=== PATIENT | female | born 1970 | race Caucasian/White ===

== ENCOUNTER 2017-01-21 18:13 | Emergency (ER) | payer SELFPAY ==
[~2017-01-21] VITALS: Ht 167.6 cm; Wt 131.0 kg
[~2017-01-21 18:13] MED LIST: DICL50TA3 PO; METR500T10 PO
[2017-01-21 18:14] VITALS: BP 167/95; PULSE 94; RESP 18; TEMP 97.6; O2SAT 98
[2017-01-21] MEDS ORDERED: cefTRIAXone 250 MG VIAL IM ONE (18:45)
[2017-01-21] MEDS ORDERED: AZITHROMYCIN PWD FOR SUSP 1 GM PACKET PO ONE (18:45)
[2017-01-21] MEDS ORDERED: LIDOCAINE HCL 1% 50 ML VIAL IM ONE (18:45)
--- NOTE | 2017-01-21 18:45 | PD ---
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 She states that she is prone to getting this. She states she has had sex once in 2 months and that was on Thursday. She states she started on Thursday afternoon with cloudy urine, vaginal burning and yellow vaginal discharge. Patient denies a chance of . She has no medical problems and takes no medications. I explained to the patient that the individual that she is having sex with is probably giving her the Trichomonas that he needs to be treated as well. She denies any other complaints at this time. PFSH Past Medical History Anxiety: Yes Depression: Yes Psychiatric: No Immunizations Current: Yes ?: Not LMP: 2 WEEKS AGO : 3 Para: 3 Tubal Ligation: Yes Past Surgical History Section: Yes Cholecystectomy: Yes Social History Alcohol Use: No Tobacco Use: Yes (1 PK A DAY FOR 20+ YEARS) Substance Use: No (history of substance abuse. Sober 28 months) Allergies-Medications (Allergen,Severity, Reaction): Coded Allergies: Phenergan (Verified Allergy, Mild, CONFUSION, 01/21/17) Reported Meds & Prescriptions Reported Meds & Active Scripts Active Diclofenac Sodium DR (Diclofenac Sodium) 50 Mg Tabdr 50 Mg PO TID Metronidazole 500 Mg Tab 500 Mg PO BID 7 Days Review of Systems Except as stated in HPI: all other systems reviewed are Neg Physical Exam Narrative GENERAL: Well-nourished, well-developed female patient, ambulatory. Afebrile. SKIN: Focused skin assessment warm/dry. HEAD: Normocephalic. Atraumatic. EYES: No scleral icterus. No injection or drainage. NECK: Supple, trachea midline. No JVD or lymphadenopathy. CARDIOVASCULAR: Regular rate and rhythm without murmurs, gallops, or rubs. RESPIRATORY: Breath sounds equal bilaterally. No accessory muscle use. Lungs sounds are clear to auscultation. GASTROINTESTINAL: Abdomen soft, non-tender, nondistended. MUSCULOSKELETAL: No cyanosis, or edema. BACK: Nontender without obvious deformity. No CVA tenderness. GENITOURINARY: Normal external genitalia without lesions or erythema. Vaginal vault with mild yellow drainage, no blood. Cervical os was closed without drainage. No cervical motion tenderness. Uterus nontender and nonenlarged. Bilateral adnexa nontender without masses. Pelvic exam was done with RN at bedside. Data Data Last Documented VS Vital Signs Date Time Temp Pulse Resp B/P Pulse Ox O2 Delivery O2 Flow Rate FiO2 01/21/17 19:00 97 16 01/21/17 18:14 97.6 167/95 98 Room Air Orders Gc And Chlamydia Pcr (01/21/17 18:27) Wet Prep Profile (01/21/17 18:27) Urinalysis - C+S If Indicated (01/21/17 18:27) Ed Urine Pregnancytest Poc (01/21/17 18:27) Azithromycin Powd Pack (Zithromax Powd P (01/21/17 18:45) Ceftriaxone Inj (Rocephin Inj) (01/21/17 18:45) Lidocaine 1% Inj (50 Ml) (Xylocaine 1% I (01/21/17 18:45) Urine Culture (01/21/17 19:19) Labs Laboratory Tests Test 01/21/17 19:19 Urine Color YELLOW Urine Turbidity HAZY Urine pH 6.0 Urine Specific [place] 1.016 Urine Protein NEG mg/dL Urine Glucose (UA) NEG mg/dL Urine Ketones NEG mg/dL Urine Occult Blood NEG Urine Nitrite NEG Urine Bilirubin NEG Urine Urobilinogen LESS THAN 2.0 MG/DL Urine Leukocyte Esterase LARGE Urine RBC 7 /hpf Urine WBC 11 /hpf Urine Squamous Epithelial 9 /hpf Cells Urine Bacteria RARE /hpf Urine Mucus FEW /lpf Microscopic Urinalysis Comment CULTURE INDICATED Clue Cells (Wet Prep) NONE SEEN Vaginal Trichomonas (Wet Prep) PRESENT Vaginal Yeast (Wet Prep) NONE SEEN MDM Medical Decision Making Medical Screen Exam Complete: Yes Emergency Medical Condition: Yes Medical Record Reviewed: Yes Differential Diagnosis Trichomonas versus chlamydia versus gonorrhea versus vaginal candidiasis versus UTI Narrative Course 46-year-old female presents to the emergency department for evaluation of abnormal vaginal discharge, cloudy urine, vaginal itching and burning that started on Thursday, 2 days ago. Patient believes she has Trichomonas. UA and urine test are ordered and pending. Patient gives verbal consent for pelvic exam. I discussed prophylactic treatment for chlamydia and gonorrhea with the patient and she agrees to do this. It is given Rocephin 250 mg IM and azithromycin 1 g by mouth. UA shows large leukocyte esterase, 11 WBCs. UPT is negative. Wet prep is positive for vaginal Trichomonas. I instructed her that she needs to have her sexual partner tested and treated before resuming sex. She'll be discharged prescription for Macrobid and Flagyl. She verbalizes agreement and understanding. The patient was discharged in stable condition with instructions, including return instructions and follow up instructions. Diagnosis Primary Impression: Vaginal trichomoniasis Additional Impression: Urinary tract infection Qualified Code: N30.00 - Acute cystitis without hematuria Referrals: Primary Care Physician call for appointment Patient Instructions: General Instructions, Trichomoniasis (ED), Urinary Tract Infection in Women (ED) Additional Instructions: Take Flagyl as directed. This is a one time dose of 4 pills. Take Macrobid as directed until gone. Have sexual partner tested and treated before resuming sex. Return to the emergency department for any acute worsening of symptoms. Med/Other Pt SpecificInfo: Prescription(s) given Scripts Nitrofurantoin Monohydrate Macrocrystals (Macrobid)100 Mg [id number] Mg PO BID 7 Days Ref 0 Prov:Vero Gaines 01/21/17 Metronidazole (Flagyl)500 Mg Tab2 Gm PO ONCE #4 TAB Ref 0 Prov:Vero Gaines 01/21/17 Disposition: 01 DISCHARGE HOME Condition: Stable Vero Gaines Jan 21, 2017 18:45
[2017-01-21 19:38] LABS: BACTERIA, URINE RARE /hpf; BLOOD, URINE NEG (NEG); COMMENT (UR) CULTURE INDICATED; CULTURE IF INDICATED CULTURE INDICATED; GLUCOSE,URINE NEG (NEG); KETONE, URINE NEG (NEG); MUCUS URINE FEW /lpf (OCC); NITRITE,URINE NEG (NEG); SQUAMOUS EPITHELIAL CELL URINE 9 /hpf (0-5); URINE COLOR YELLOW (YELLW/STRAW)
[2017-01-21] MEDS ORDERED: MACR100C2 PO (19:57)
[2017-01-21] MEDS ORDERED: METR-1 PO (19:57)
[2017-01-21 21:34] LABS: CHLAMYDIA PCR NOT DETECTED (NOT DETECT); NEISSERIA PCR NOT DETECTED (NOT DETECT)
== END 2017-01-21 20:10 | disposition home or self-care (01) ==
LOC: NEPD 18:13
DX: A59.01 Trichomonal vulvovaginitis (principal); N39.0 Urinary tract infection, site not specified; F32.9 Major depressive disorder, single episode, unspecified; F17.200 Nicotine dependence, unspecified, uncomplicated
CPT/HCPCS: 81001; 84703; 87086; 87210; 87491; 87591; 96372; 99283; J0696

== ENCOUNTER 2017-06-18 23:34 | Emergency (ER) | payer SELFPAY ==
[~2017-06-18 23:34] MED LIST changes: +MACR100C2 PO; +METR-1 PO
[2017-06-18 23:37] VITALS: BP 174/96; PULSE 85; RESP 15; TEMP 98.3; O2SAT 96
--- NOTE | 2017-06-19 00:57 | PD ---
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 She states she finished her menstrual cycle 3 days ago. She denies other complaints. She states she's had an STD before but had a checkup a couple months ago that was STD free and she has been using protection and has one partner since then. She states she did have urinary tract infection at that time. She states the discharge is whitish. PFSH Past Medical History Anxiety: Yes Depression: Yes Psychiatric: No Immunizations Current: Yes ?: Not : 3 Para: 3 Tubal Ligation: Yes Past Surgical History Section: Yes Cholecystectomy: Yes Social History Alcohol Use: No Tobacco Use: Yes (1 PK A DAY FOR 20+ YEARS) Substance Use: No (history of substance abuse. Sober 28 months) Allergies-Medications (Allergen,Severity, Reaction): Coded Allergies: promethazine (Unverified Allergy, Mild, CONFUSION, 06/18/17) Reported Meds & Prescriptions Reported Meds & Active Scripts Active Macrobid (Nitrofurantoin Monoh/Nitrofur Macro) 100 Mg Cap 100 Mg PO BID 7 Days Flagyl (Metronidazole) 500 Mg Tab 2 Gm PO ONCE Diclofenac Sodium DR (Diclofenac Sodium) 50 Mg Tabdr 50 Mg PO TID Metronidazole 500 Mg Tab 500 Mg PO BID 7 Days Review of Systems Except as stated in HPI: all other systems reviewed are Neg Physical Exam Narrative GENERAL: Well-nourished, well-developed patient. SKIN: Warm and dry. HEAD: Normocephalic and atraumatic. EYES: No injection or drainage. ENT: No nasal drainage noted. NECK: Supple, trachea midline. CARDIOVASCULAR: Regular rate and rhythm RESPIRATORY: Breath sounds equal bilaterally. No accessory muscle use. GASTROINTESTINAL: Abdomen soft, non-tender, nondistended. GENITOURINARY: Normal external genitalia without lesions or erythema. Vaginal vault without blood, small amount of thick white drainage noted. Cervical os was closed without drainage. Bilateral adnexa nontender without masses. NEUROLOGICAL: Awake and alert. Motor and sensory grossly within normal limits. Normal speech. Data Data Last Documented VS Vital Signs Date Time Temp Pulse Resp B/P (MAP) Pulse Ox O2 Delivery O2 Flow Rate FiO2 06/18/17 23:37 98.3 85 15 174/96 (122) 96 Room Air Orders Orders Gc And Chlamydia Pcr (06/19/17 00:35) Wet Prep Profile (06/19/17 00:35) Urinalysis - C+S If Indicated (06/19/17 00:35) Ed Urine Pregnancytest Poc (06/19/17 00:35) Urine Culture (06/19/17 00:45) Azithromycin Powd Pack (Zithromax Powd P (06/19/17 01:30) Ceftriaxone Inj (Rocephin Inj) (06/19/17 01:30) Lidocaine 1% Inj (50 Ml) (Xylocaine 1% I (06/19/17 01:30) Metronidazole (Flagyl) (06/19/17 01:30) Labs Laboratory Tests Test 06/19/17 00:45 Urine Color YELLOW Urine Turbidity HAZY Urine pH 5.5 Urine Specific [place] 1.027 Urine Protein TRACE mg/dL Urine Glucose (UA) NEG mg/dL Urine Ketones NEG mg/dL Urine Occult Blood SMALL Urine Nitrite NEG Urine Bilirubin NEG Urine Urobilinogen 2.0 MG/DL Urine Leukocyte Esterase LARGE Urine RBC 31 /hpf Urine WBC 69 /hpf Urine Squamous Epithelial Cells 3 /hpf Urine Bacteria RARE /hpf Urine Mucus FEW /lpf Microscopic Urinalysis Comment CULTURE INDICATED Clue Cells (Wet Prep) NONE SEEN Vaginal Trichomonas (Wet Prep) PRESENT Vaginal Yeast (Wet Prep) NONE SEEN MDM Medical Decision Making Medical Screen Exam Complete: Yes Emergency Medical Condition: Yes Medical Record Reviewed: Yes (pmh confirmed) Interpretation(s) ua with signs of infection wet prep with trichomonas beta negative Differential Diagnosis uti, yeast infection, std.... Narrative Course will check wet prep, ua, and reeval will treat with rocephin, azithromycin and flagyl given positive trichomonas, Patient denies any new complaints, all questions answered. Patient knows that follow up is incumbent on them and to return to the emergency room immediately if new or worsening symptoms develop. Patient given strict return precautions, vitals reviewed and are normal, agrees to further workup as an outpatient. Diagnosis Primary Impression: Vaginal trichomoniasis Additional Impression: Urinary tract infection Qualified Codes: N39.0 - Urinary tract infection, site not specified Patient Instructions: General Instructions Additional Instructions: return as needed, follow with gynecology this week Med/Other Pt SpecificInfo: Prescription(s) given Scripts Nitrofurantoin Monohydrate Macrocrystals (Macrobid) 100 Mg Capsule 100 MG PO BID for Infection for 5 Days, CAP 0 Refills Prov: Dori López MD 06/19/17 Disposition: 01 DISCHARGE HOME Condition: Stable Dori López MD Jun 19, 2017 00:57
[2017-06-19 01:18] LABS: BACTERIA, URINE RARE /hpf; BLOOD, URINE SMALL (NEG); COMMENT (UR) CULTURE INDICATED; CULTURE IF INDICATED CULTURE INDICATED; GLUCOSE,URINE NEG (NEG); KETONE, URINE NEG (NEG); MUCUS URINE FEW /lpf (OCC); NITRITE,URINE NEG (NEG); PH, URINE 5.5 (5.0-8.5); SQUAMOUS EPITHELIAL CELL URINE 3 /hpf (0-5); URINE COLOR YELLOW (YELLW/STRAW)
[2017-06-19] MEDS ORDERED: MACR100C2 PO (01:30)
[2017-06-19] MEDS ORDERED: metroNIDAZOLE 500 MG TAB PO ONE (01:30)
[2017-06-19] MEDS ORDERED: LIDOCAINE HCL 1% 50 ML VIAL IM ONE (01:30)
[2017-06-19] MEDS ORDERED: cefTRIAXone 250 MG VIAL IM ONE (01:30)
[2017-06-19] MEDS ORDERED: AZITHROMYCIN PWD FOR SUSP 1 GM PACKET PO ONE (01:30)
[2017-06-19 03:15] LABS: CHLAMYDIA PCR NOT DETECTED (NOT DETECT); NEISSERIA PCR NOT DETECTED (NOT DETECT)
== END 2017-06-19 01:57 | disposition home or self-care (01) ==
LOC: NEPC 23:34
DX: A59.01 Trichomonal vulvovaginitis (principal); N39.0 Urinary tract infection, site not specified; B95.1 Streptococcus, group B, as the cause of diseases classified elsewhere; F17.200 Nicotine dependence, unspecified, uncomplicated; Z86.59 Personal history of other mental and behavioral disorders
CPT/HCPCS: 81001; 84703; 87086; 87210; 87491; 87591; 96372; 99284; J0696

== ENCOUNTER 2017-08-11 13:25 | Emergency (ER) | payer SELFPAY ==
[~2017-08-11] VITALS: Ht 160 cm; Wt 80.0 kg
[~2017-08-11 13:25] MED LIST changes: +METR1TAB76 PO; -METR500T10 PO
[2017-08-11 13:27] VITALS: BP 189/90; PULSE 88; RESP 18; TEMP 98.4; O2SAT 97
--- NOTE | 2017-08-11 13:32 | PD ---
Physical Exam Date Seen by Provider: Aug 11, 2017 Time Seen by Provider: 13:28 Narrative 47-year-old white female presents emergency Department with complaints of right ear tinnitus, runny nose, cough, congestion for the last few days. Positive ear pressure. No fever or chills. Vital signs reviewed. Pt waiting for bed placement. Data Data Last Documented VS Vital Signs Date Time Temp Pulse Resp B/P (MAP) Pulse Ox O2 Delivery O2 Flow Rate FiO2 08/11/17 13:27 98.4 88 18 189/90 (123) [address] [facility] Medical Record Reviewed: No Supervised Visit with CAMILO: Fuad Porter Aug 11, 2017 13:32
[2017-08-11] MEDS ORDERED: DEXT10CA8 PO (13:35)
[2017-08-11] MEDS ORDERED: AMOX500T PO (13:51)
--- NOTE | 2017-08-11 14:03 | PD ---
HPI Chief Complaint: ENT Complaint Time Seen by Provider: 13:42 Travel History International Travel<30 days: No Contact w/Intl Traveler<30days: No Traveled to known affect area: No History of Present Illness HPI 47-year-old female presents to the emergency room for evaluation of right ear pain and ringing for the past 2 days. States she has had a cold for the past week. Her children are in daycare and brought it home. She denies fever, chills, nausea, vomiting, or drainage from the ear. States pain is severe. She is fearful that there is something in her ear. She tried to get her primary care physician but could not get in. It has any chronic medical conditions or daily medications. PFSH Past Medical History Anxiety: Yes Depression: Yes Psychiatric: No Immunizations Current: Yes ?: Not : 3 Para: 3 Tubal Ligation: Yes Past Surgical History Section: Yes Cholecystectomy: Yes Social History Alcohol Use: No Tobacco Use: Yes (1 PK A DAY FOR 20+ YEARS) Substance Use: No (history of substance abuse. Sober 28 months) Allergies-Medications (Allergen,Severity, Reaction): Coded Allergies: promethazine (Unverified Allergy, Mild, CONFUSION, 08/11/17) Reported Meds & Prescriptions Reported Meds & Active Scripts Active Amoxicillin 500 Mg Tab 500 Mg PO BID 7 Days Reported [place] Plus Mucus (Dextromethorphan-Guaifenesin) 10-200 Mg Cap 1 Cap PO Q4H PRN Review of Systems Except as stated in HPI: all other systems reviewed are Neg Physical Exam Narrative GENERAL: Well-nourished, well-developed female in no acute distress. Afebrile. Ambulatory. SKIN: Focused skin assessment warm/dry. HEAD: Normocephalic. EYES: No scleral icterus. No injection or drainage. ENT: Mucosa pink and moist. Mild erythema of pharynx without edema or exudates. No uvular edema. No uvular, palatal, or tonsillar deviation. Airway patent. Nasal turbinates appear normal without nasal blood, purulent drainage or septal hematoma. EARS: Bilateral pinnae and external canals appear within normal limits. Left tympanic membrane unremarkable. Right tympanic membrane is extremely erythematous with large effusion. No perforation. NECK: Supple, trachea midline. No JVD or lymphadenopathy. CARDIOVASCULAR: Regular rate and rhythm without murmurs, gallops, or rubs. RESPIRATORY: Breath sounds equal bilaterally. No accessory muscle use. No crackles, rales, wheezes, or rhonchi. Data Data Last Documented VS Vital Signs Date Time Temp Pulse Resp B/P (MAP) Pulse Ox O2 Delivery O2 Flow Rate FiO2 08/11/17 13:27 98.4 88 18 189/90 (123) 97 Room Air MDM Medical Decision Making Medical Screen Exam Complete: Yes Emergency Medical Condition: Yes Medical Record Reviewed: Yes Differential Diagnosis Otitis media, otitis externa, URI Narrative Course 47-year-old otherwise healthy female presents to the emergency room for evaluation of right ear pain for the past 2 days. He said associated upper respiratory infection for the past week. Denies fever, chills, nausea, vomiting , or ear drainage. Physical exam reveals obvious otitis media with effusion of the right ear. Patient discharged with prescription for amoxicillin and told to follow up with a primary care physician or return for worsening symptoms. She understands and agrees to plan. Diagnosis Primary Impression: Right otitis media with effusion Referrals: Primary Care Physician Additional Instructions: Rest and drink plenty of fluids. Take amoxicillin as directed, until gone. Take ibuprofen with food as directed, as needed for pain. Follow-up with a primary care physician. Return to the emergency room for worsening symptoms. Med/Other Pt SpecificInfo: Prescription(s) given Scripts Amoxicillin (Amoxicillin) 500 Mg Tab 500 MG PO BID for Infection for 7 Days, #14 TAB 0 Refills Prov: Ketty Carlson Olivier MAGALLANES 08/11/17 Disposition: 01 DISCHARGE HOME Condition: Stable Lexy Graves Aug 11, 2017 14:03
[2017-08-11 14:05] VITALS: BP 134/90; PULSE 80
== END 2017-08-11 14:51 | disposition home or self-care (01) ==
LOC: NEPD 13:25
DX: H65.91 Unspecified nonsuppurative otitis media, right ear (principal); F17.200 Nicotine dependence, unspecified, uncomplicated
CPT/HCPCS: 99283

== ENCOUNTER 2017-08-18 09:21 | Emergency (ER) | payer SELFPAY ==
[~2017-08-18] VITALS: Ht 165.1 cm; Wt 128.0 kg
[~2017-08-18 09:21] MED LIST changes: +AMOX500T PO; +DEXT10CA8 PO; -DICL50TA3 PO; -MACR100C2 PO; -METR-1 PO; -METR1TAB76 PO
[2017-08-18 09:23] VITALS: BP 161/88; PULSE 83; RESP 22; TEMP 98.9; O2SAT 99
[2017-08-18] MEDS ORDERED: PRED20 PO (11:19)
[2017-08-18] MEDS ORDERED: GUAI600T11 PO (11:19)
[2017-08-18] MEDS ORDERED: AUGM875T3 PO (11:19)
--- NOTE | 2017-08-18 11:32 | PD ---
HPI Chief Complaint: ENT Complaint Time Seen by Provider: 11:14 Travel History International Travel<30 days: No Contact w/Intl Traveler<30days: No Traveled to known affect area: No History of Present Illness HPI 39-year-old female that presents to the ED for evaluation of bilateral ear pain. Per patient she's had this for about 6 days now. She was seen here earlier last week and was diagnosed with otitis media and given amoxicillin. Per patient having taken anything else for it. She states it is not getting better in the right ear appears to be getting worse. More painful. She states having tinnitus and swelling of the throat. She denies any other medical issues. No rashes. No cough or runny nose. No sick contacts recently. No recent travel. No injuries or trauma. States having some congestion. States compliance with amoxicillin. Allergy only to Reglan. Per patient pain is 7 out of 10. Mainly on the right ear but also on the left. No drainage from either ear. PFSH Past Medical History Anxiety: Yes Depression: Yes Psychiatric: No Immunizations Current: Yes Influenza Vaccination: No ?: Not LMP: MID-JULY 2017 : 3 Para: 3 Tubal Ligation: Yes Past Surgical History Section: Yes Cholecystectomy: Yes Social History Alcohol Use: No Tobacco Use: Yes (1/2 PPD) Substance Use: No (history of substance abuse. Sober 5 YEARS) Allergies-Medications (Allergen,Severity, Reaction): Coded Allergies: promethazine (Unverified Allergy, Mild, CONFUSION, 08/18/17) Reported Meds & Prescriptions Reported Meds & Active Scripts Active Mucus Relief ER (Guaifenesin) 600 Mg Tab 600 Mg PO BID PRN Prednisone 20 Mg Tab 20 Mg PO BID 5 Days Augmentin (Amoxicillin-Clavulanate) 875-125 Mg Tab 1 Tab PO BID 10 Days Review of Systems Except as stated in HPI: all other systems reviewed are Neg Physical Exam Narrative GENERAL: Well-nourished, well-developed patient in no apparent distress. SKIN: Warm and dry. HEAD: Atraumatic. Normocephalic. EYES: Pupils equal and round reactive to light and accommodation. No scleral icterus. No injection or drainage. ENT: No nasal bleeding or discharge. Mucous membranes pink and moist. TMs are red and bulging bilaterally. No perforation noted bilaterally.. No mastoid tenderness. Ear canals are intact bilaterally. No lymphadenopathy. Nostril mucosa is red and moist with clear mucus noted. No sinus tenderness to palpation noted. Tonsils are not enlarged or swollen. No ulvua Deviation. Tongue is midline. NECK: Trachea midline. No JVD. No meningeal signs noted CARDIOVASCULAR: Regular rate and rhythm. RESPIRATORY: No accessory muscle use. Clear to auscultation. Breath sounds equal bilaterally. GASTROINTESTINAL: Abdomen soft, non-tender, nondistended. Hepatic and splenic margins not palpable. MUSCULOSKELETAL: Extremities without clubbing, cyanosis, or edema. No obvious deformities. NEUROLOGICAL: Awake and alert. No obvious cranial nerve deficits. Motor grossly within normal limits. Five out of 5 muscle strength in the arms and legs. Normal speech. PSYCHIATRIC: Appropriate mood and affect; insight and judgment normal. Data Data Last Documented VS Vital Signs Date Time Temp Pulse Resp B/P (MAP) Pulse Ox O2 Delivery O2 Flow Rate FiO2 08/18/17 09:23 98.9 83 22 161/88 (112) 99 Room Air Orders Orders Ed Discharge Order (08/18/17 11:29) [facility] Medical Decision Making Medical Screen Exam Complete: Yes Emergency Medical Condition: Yes Medical Record Reviewed: Yes Differential Diagnosis Otitis media versus otitis externa versus sinusitis versus mastoiditis Narrative Course 47-year-old female that presents to the ED for evaluation of possible ear infection. Patient was properly examined and was found to have signs and symptoms consistent appears to be otitis media bilaterally. Right worse than left. Patient had a taking amoxicillin with minimal relief. At this time I recommend switching to Augmentin as there could be concerning for persistence. Patient was given a prescription for Mucinex as well as prednisone to help with the congestion and inflammation. She was told to take Motrin or Tylenol for pain as needed. Follow with PCP. See ED for any worsening symptoms. Diagnosis Primary Impression: Otitis media Qualified Codes: H65.06 - Acute serous otitis media, recurrent, bilateral Patient Instructions: General Instructions Additional Instructions: Motrin and Tylenol for pain and fever. Take medications as prescribed. Stop amoxicillin. Drink plenty of fluids. Follow-up with PCP. See ED for worsening symptoms. Med/Other Pt SpecificInfo: Prescription(s) given, Med Stopped Scripts Guaifenesin ER (Mucus Relief ER) 600 Mg Tab 600 MG PO BID Y for CHEST CONGESTION AND/OR COUGH, #20 TAB 0 Refills Prov: Viel,Luiz C. MD 08/18/17 Prednisone (Prednisone) 20 Mg Tab 20 MG PO BID for 5 Days, #10 TAB 0 Refills Prov: Luiz Mosquera MD 08/18/17 Amoxicillin-Clavulanate (Augmentin) 875-125 Mg Tab 1 TAB PO BID for Infection for 10 Days, #20 TAB 0 Refills Prov: Luiz Mosquera MD 08/18/17 Disposition: 01 DISCHARGE HOME Condition: Stable Andrea Urbina Aug 18, 2017 11:32
== END 2017-08-18 11:46 | disposition home or self-care (01) ==
LOC: NEPC 09:21
DX: H65.06 Acute serous otitis media, recurrent, bilateral (principal); F17.210 Nicotine dependence, cigarettes, uncomplicated; F41.9 Anxiety disorder, unspecified; F32.9 Major depressive disorder, single episode, unspecified
CPT/HCPCS: 99284

== ENCOUNTER 2018-03-30 16:55 | Emergency (ER) | payer SELFPAY ==
[~2018-03-30] VITALS: Ht 167.6 cm; Wt 130.0 kg
[~2018-03-30 16:55] MED LIST changes: -AMOX500T PO; +AUGM875T3 PO; -DEXT10CA8 PO; +GUAI600T11 PO; +PRED20 PO
[2018-03-30 17:08] VITALS: BP 148/75; PULSE 85; RESP 18; TEMP 98.3; O2SAT 98
--- NOTE | 2018-03-30 17:41 | PD ---
HPI Chief Complaint: ENT Complaint Time Seen by Provider: 17:18 Travel History International Travel<30 days: No Contact w/Intl Traveler<30days: No Traveled to known affect area: No History of Present Illness HPI 47-year-old female presents to the emergency department with complaint of sore throat that started 1 week ago with fever of 101.9 has now turned into cough, wheezing, shortness of breath for the past few days. Denies recent fevers. Reports chills. Reports chest tightness. Denies chest pain. Denies history of asthma or COPD. Reports daily tobacco use. Denies ear pain, difficulty swallowing, unusual drooling. Denies vomiting. Has tried "everything "over-the -counter for symptom management. No others with similar symptoms. No known relieving or aggravating factors. Describes it as "mucus in my throat and choking on it" and a sensation of "swallowing razor blades." Shortness of breath is worse with activity. Symptoms are moderate in severity. No primary care provider. Allergies to Phenergan. Denies significant past medical history. Has no other medical complaints. No other modifying factors or associated signs and symptoms. PFSH Past Medical History Anxiety: Yes Depression: Yes Psychiatric: No Immunizations Current: Yes : 3 Para: 3 Tubal Ligation: Yes Past Surgical History Section: Yes Cholecystectomy: Yes Social History Alcohol Use: No Tobacco Use: Yes (1/2 PPD) Substance Use: No (history of substance abuse. Sober 5 YEARS) Allergies-Medications (Allergen,Severity, Reaction): Coded Allergies: promethazine (Unverified Allergy, Mild, CONFUSION, 08/18/17) Reported Meds & Prescriptions Reported Meds & Active Scripts Active Albuterol Neb (Albuterol Sulfate) 2.5 Mg/3 Ml Neb 2.5 Mg NEB Q4HR NEB PRN Azithromycin 500 Mg Tab 500 Mg PO DAILY Deltasone (Prednisone) 20 Mg Tab 40 Mg PO DAILY 4 Days start 03/31/2018 Ventolin Hfa 18 GM Inh (Albuterol Sulfate) 90 Mcg/Act Aer 2 Puff INH Q4-6H PRN Tessalon Perles (Benzonatate) 100 Mg Cap 100 Mg PO TID PRN Mucus Relief ER (Guaifenesin) 600 Mg Tab 600 Mg PO BID PRN Prednisone 20 Mg Tab 20 Mg PO BID 5 Days Augmentin (Amoxicillin-Clavulanate) 875-125 Mg Tab 1 Tab PO BID 10 Days Review of Systems Except as stated in HPI: all other systems reviewed are Neg Physical Exam Narrative GENERAL: Well-nourished, well-developed female patient, in no acute distress; afebrile, nontoxic-appearing SKIN: Warm and dry. HEAD: Atraumatic. Normocephalic. EYES: Pupils equal and round. No scleral icterus. No injection or drainage. ENT: Mucosa pink and moist. Oral pharynx with erythema; without edema or exudates. No uvular edema. No uvular, palatal, or tonsillar deviation. Airway patent. Nares without nasal blood, purulent drainage or septal hematoma. EARS: Bilateral pinnae and external canals appear within normal limits. Bilateral tympanic membranes without erythema, dullness or perforation. NECK: Trachea midline. No lymphadenopathy. CARDIOVASCULAR: Regular rate and rhythm. No murmur appreciated. RESPIRATORY: No accessory muscle use. Lungs with Wheezing throughout to auscultation. Breath sounds equal bilaterally. No retractions or tachypnea. Audible wheezing noted. GASTROINTESTINAL: Abdomen soft, non-tender, nondistended. Hepatic and splenic margins not palpable. Bowel sounds are active 4 quadrants. MUSCULOSKELETAL: No obvious deformities. No clubbing. No cyanosis. No edema. NEUROLOGICAL: Awake and alert. Oriented 3. No obvious cranial nerve deficits. Motor grossly within normal limits. Normal speech. Moves all extremities. 5/5 strength to all extremities. PSYCHIATRIC: Appropriate mood and affect; insight and judgment normal. Data Data Last Documented VS Vital Signs Date Time Temp Pulse Resp B/P (MAP) Pulse Ox O2 Delivery O2 Flow Rate FiO2 03/30/18 17:08 98.3 85 18 148/75 (99) 98 Orders Orders Prednisone (Deltasone) (03/30/18 17:45) Albuterol-Ipratropium Neb (Duoneb Neb) (03/30/18 17:45) Albuterol-Ipratropium Neb (Duoneb Neb) (03/30/18 18:45) Ed Discharge Order (03/30/18 19:37) [facility] Medical Decision Making Medical Screen Exam Complete: Yes Emergency Medical Condition: Yes Medical Record Reviewed: Yes Differential Diagnosis Acute bronchitis, URI, viral pharyngitis, strep pharyngitis, pneumonia Narrative Course 47-year-old female physical exam and HPI consistent with bronchitis and URI. Patient is in no acute distress. She does have wheezing on auscultation of the lungs and audible wheezing noted. She has no retractions or tachypnea. Her oxygen saturation is 98% on room air. Lung sounds are equal bilaterally and no consolidation auscultated, with no concerns of pneumonia. She did have fever 1 week ago, but none recently. DuoNeb and Deltasone ordered. 1840: On reexamination the patient continues to have some notable audible wheezing and wheezing on auscultation of the lungs. She reports some improvement in her symptoms, but not much. She continues to be in no acute distress. DuoNeb 2 ordered. 1900: Patient awaiting second and third DuoNeb treatments. Report given to Dr. Mosquera. See his note for final patient disposition. Patient will be discharged with a azithromycin, Ventolin inhaler, albuterol nebulizers, Tessalon Perles, Deltasone. I did discuss Ventolin inhaler and albuterol nebulizers are the same medication and to use one or the other and the patient verbalized understanding and agreement. Diagnosis Primary Impression: Acute bronchitis Qualified Codes: J20.9 - Acute bronchitis, unspecified Additional Impression: Upper respiratory infection Qualified Codes: J06.9 - Acute upper respiratory infection, unspecified Referrals: [facility] Primary Care Physician Patient Instructions: Acute Bronchitis (ED), General Instructions, Upper Respiratory Infection (ED) Additional Instructions: Use Albuterol inhaler as prescribed Take oral steroids as prescribed and complete full course Use Tessalon Perles as prescribed to decrease coughing spasms [id number] decongestants or antihistamines as directed and as needed for symptom management Your cough can last 4-6 weeks Drink plenty of fluids to prevent dehydration Use hot air humidifier to decrease cough exacerbation Turn off ceiling fans and sleep with head of bed elevated Avoid triggers such as second hand smoke, dust, known allergens Follow-up with your primary care provider Return to the emergency department immediately with worsening of symptoms Med/Other Pt SpecificInfo: Prescription(s) given Scripts Albuterol Neb (Albuterol Neb) 2.5 Mg/3 Ml Neb 2.5 MG NEB Q4HR NEB Y for SHORTNESS OF BREATH, #60 NEBULE 0 Refills Prov: Noelle SzymanskiP 03/30/18 Azithromycin (Azithromycin) 500 Mg Tab 500 MG PO DAILY for Infection, #5 TAB 0 Refills Prov: Noelle SzymanskiP 03/30/18 Prednisone (Deltasone) 20 Mg Tab 40 MG PO DAILY for 4 Days, #8 TAB 0 Refills start 03/31/2018 Prov: Noelle SzymanskiP 03/30/18 Albuterol 18 GM Inh (Ventolin Hfa 18 GM Inh) 90 Mcg/Act Aer 2 PUFF INH Q4-6H Y for SOB/WHEEZING, #1 INHALER 0 Refills Prov: Noelle Szymanski 03/30/18 Benzonatate (Tessalon Perles) 100 Mg Cap 100 MG PO TID Y for COUGH, #10 CAP 0 Refills Prov: Noelle Szymanski 03/30/18 Disposition: 01 DISCHARGE HOME Condition: Stable Noelle Szymanski Mar 30, 2018 17:41
[2018-03-30] MEDS ORDERED: RESP: ALBUTEROL 2.5 MG/IPRATROPIUM 0.5 MG NEB (SCH) INH ONE (17:45)
[2018-03-30] MEDS ORDERED: predniSONE 20 MG TAB PO ONE (17:45)
[2018-03-30] MEDS ORDERED: PRED-503 PO (18:37)
[2018-03-30] MEDS ORDERED: AZIT500T2 PO (18:37)
[2018-03-30] MEDS ORDERED: BENZ100 PO (18:37)
[2018-03-30] MEDS ORDERED: VENTAER INH (18:37)
[2018-03-30] MEDS: RESP: ALBUTEROL 2.5 MG/IPRATROPIUM 0.5 MG NEB (SCH) INH ×2 (18:45→19:00)
[2018-03-30] MEDS ORDERED: ALBU0.08 NEB (18:57)
--- NOTE | 2018-03-30 19:37 | PD ---
Data Data Last Documented VS Vital Signs Date Time Temp Pulse Resp B/P (MAP) Pulse Ox O2 Delivery O2 Flow Rate FiO2 03/30/18 17:08 98.3 85 18 148/75 (99) 98 Orders Orders Prednisone (Deltasone) (03/30/18 17:45) Albuterol-Ipratropium Neb (Duoneb Neb) (03/30/18 17:45) Albuterol-Ipratropium Neb (Duoneb Neb) (03/30/18 18:45) MDM Supervised Visit with CAMILO: Yes Narrative Course The history, exam, and medical decision-making in the associated mid-level provider note were completed with my assistance. I reviewed and agree with the findings presented. I attest that I had a [id number] encounter with the patient on the same day, and personally performed and documented my assessment and findings in the medical record. *My assessment and Findings: A 47-year-old woman, seen initially by Corinne Alford, with what seems to be wheezy bronchitis. Symptoms been ongoing for several days. No history of asthma. Does smoke regularly. Cough congestion with wheezing and some shortness of breath. Looks well. States she does get short of breath when she walks around some. Much improved after treatments here. No fevers now, little bit initially. No rhonchi or evidence of pneumonia. Recommend antibiotic treatment steroids and bronc dilators as discussed. She has nebulizer machine at home that the family members. Diagnosis Primary Impression: Acute bronchitis Qualified Codes: J20.9 - Acute bronchitis, unspecified Additional Impression: Upper respiratory infection Qualified Codes: J06.9 - Acute upper respiratory infection, unspecified Referrals: [facility] Primary Care Physician Patient Instructions: General Instructions, Upper Respiratory Infection (ED), Acute Bronchitis (ED) Departure Forms: Tests/Procedures Additional Instruction: Use Albuterol inhaler as prescribed Take oral steroids as prescribed and complete full course Use Tessalon Perles as prescribed to decrease coughing spasms [id number] decongestants or antihistamines as directed and as needed for symptom management Your cough can last 4-6 weeks Drink plenty of fluids to prevent dehydration Use hot air humidifier to decrease cough exacerbation Turn off ceiling fans and sleep with head of bed elevated Avoid triggers such as second hand smoke, dust, known allergens Follow-up with your primary care provider Return to the emergency department immediately with worsening of symptoms Scripts Albuterol Neb (Albuterol Neb) 2.5 Mg/3 Ml Neb 2.5 MG NEB Q4HR NEB Y for SHORTNESS OF BREATH, #60 NEBULE 0 Refills Prov: Noelle Szymanski [employer] 03/30/18 Azithromycin (Azithromycin) 500 Mg Tab 500 MG PO DAILY for Infection, #5 TAB 0 Refills Prov: Noelle SzymanskiP 03/30/18 Prednisone (Deltasone) 20 Mg Tab 40 MG PO DAILY for 4 Days, #8 TAB 0 Refills start 03/31/2018 Prov: Noelle SzymanskiP 03/30/18 Albuterol 18 GM Inh (Ventolin Hfa 18 GM Inh) 90 Mcg/Act Aer 2 PUFF INH Q4-6H Y for SOB/WHEEZING, #1 INHALER 0 Refills Prov: Noelle SzymanskiP 03/30/18 Benzonatate (Tessalon Perles) 100 Mg Cap 100 MG PO TID Y for COUGH, #10 CAP 0 Refills Prov: Noelle SzymanskiP 03/30/18 Disposition: 01 DISCHARGE HOME Condition: Stable Luiz Mosquera MD Mar 30, 2018 19:37
== END 2018-03-30 20:02 | disposition home or self-care (01) ==
LOC: NEPD 16:55
DX: J20.9 Acute bronchitis, unspecified (principal); J06.9 Acute upper respiratory infection, unspecified; F41.9 Anxiety disorder, unspecified; F32.9 Major depressive disorder, single episode, unspecified; F17.200 Nicotine dependence, unspecified, uncomplicated; Z79.51 Long term (current) use of inhaled steroids; Z79.899 Other long term (current) drug therapy; Z88.8 Allergy status to other drugs, medicaments and biological substances
CPT/HCPCS: 94664; 99283; J7512